=== PATIENT | male | born 2000 | race Caucasian/White ===

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

== ENCOUNTER 2021-08-29 15:28 | Emergency (ER) | payer MEDICAID, OTHER ==
[2021-08-29] MEDS ORDERED: LIDOCAINE 1%-EPI 1:100000 20 ML MDV SUBQ STA (15:43)
[2021-08-29] MEDS ORDERED: TETANUS/DIPHTHERIA/PERTUSSIS 0.5 ML SYRINGE IM ONE (15:43)
--- NOTE | 2021-08-29 15:44 | ED Physician Documentation ---
PD HPI UPPER EXT INJURY - Stated complaint Stated Complaint: CUT IN L HAND - History obtained from History obtained from: Patient - Additonal information Additional information: This is a right-handed gentleman with unknown tetanus status who accidentally cut his left palm with a utility knife while at work just prior to arrival. No other injuries. Review of Systems Skin: reports: Reviewed and negative Musculoskeletal: reports: Extremity pain, Reviewed and negative. denies: Joint pain, Extremity swelling Neurologic: reports: Reviewed and negative PD PAST MEDICAL HISTORY - Allergies Allergies/Adverse Reactions: Allergies Allergy/AdvReac Type Severity Reaction Status Date / Time No Known Drug Allergies Allergy Verified 08/29/21 15:44 PD ED PE NORMAL - Vitals Vital signs reviewed: Yes - General General: Alert and oriented X 3, No acute distress - Extremities Extremities: Other (4 cm laceration on the left palm basically over the medial carpals without distal neurovascular compromise.) - Neuro Neuro: Alert and oriented X 3, Normal speech Results - Vitals Vitals: Vital Signs - 24 hr 08/29/21 15:43 Temperature 36.8 C Heart Rate 74 Respiratory 16 Rate Blood Pressure 170/74 H O2 Saturation 100 Oxygen O2 Source Room air Procedures - Laceration (location) L hand Length in cm: 4 Wound type: Into subcut fat Neurovascular status: Sensory intact, Motor intact, Vascular intact Tendon involvement: Tendon intact Anesthesia: Lidocaine 1% with epi Wound preparation: Irrigated copiously NS, Other (The wound was explored to the base, just involves subcutaneous fat, had intact flexor tendons strength of all the flexor tendons.) Skin layer closure: Nylon, Interrupted, Size #-0 - enter number (4-0), Sutures - enter # (10) Other: Patient tolerated well, No complications, Neurovascular intact, Dressing applied, Tetanus UTD, Other (Velcro wrist splint) Departure - Departure Disposition: 01 Home, Self Care Clinical Impression: Laceration Condition: Good Record reviewed to determine appropriate education?: Yes Instructions: ED Laceration Hand Comments: Come back for any signs of infection which would include: Redness, swelling, drainage, increased pain, or fevers. Keep the splint on for the most part, you do not have to wear it at rest though. You can wash it soap and water. Keep it covered and moist with bacitracin ointment which is available over the counter; avoid neosporin. Follow-up with your physician in 14 days for suture removal. Forms: Activity restrictions
[2021-08-29 15:45] VITALS: BP 170/74
== END 2021-08-29 16:34 | disposition home or self-care (01) ==
LOC: ED 15:28
DX: S61.412A Laceration without foreign body of left hand, initial encounter (principal); W26.0XXA Contact with knife, initial encounter; Y99.0 Civilian activity done for income or pay; Z23 Encounter for immunization
CPT/HCPCS: 1040M; 12002; 90471; 90715; 99283

== ENCOUNTER 2022-07-16 13:58 | Emergency (ER) | payer MEDICAID, OTHER ==
[2022-07-16 14:08] VITALS: BP 116/93
--- OUTSIDE RECORDS SUMMARY | 2022-07-16 15:25 | EXTERNAL MEDICAL SUMMARY RPT | Continuity of Care Document ---
:2000 Author Organization [facility] Address [address] [place] [address] Phone Care Team Providers Name Role Phone Unavailable Unavailable Unavailable Ken Stephens Pa-C Unavailable Unavailable Allergies No information. Encounters No information. Functional Status No information. Immunizations No information. Medications date description facility [id number] No Known Medications [facility] Problems No information. Procedures date description facility [id number] Visit Code Hold Walk-In Clinic [facility] Results/Labs No information. Social History date description facility [id number] Current every day smoker Walk-In [facility] C adams Vital Signs date measurement value units [id number]+0000 BMI BMI 21.15 kg/m2 [id number]+0000 BP_diastolic BP_diastolic 74 mmHg [id number]+0000 BP_systolic BP_systolic 118 mmHg [id number]+0000 heart_rate heart_rate 71 /min [id number]+0000 height_metric height_metric 179.07 cm [id number]+0000 height_standard height_standard 70.5 in [id number]+0000 respiration_rate respiration_rate 16 /min [id number]+0000 weight_metric weight_metric 67.59 kg [id number]+0000 weight_standard weight_standard 149 lb
--- NOTE | 2022-07-16 15:48 | CT Report ---
PROCEDURE: CERVICAL SPINE WO INDICATIONS: head injury, neck pain TECHNIQUE: Noncontrast 3 mm thick sections acquired from the skull base to the T4 level. Sagittal and coronal r eformats were then constructed. For radiation dose reduction, the following was used: automated exp osure control, adjustment of mA and/or kV according to patient size. COMPARISON: None. FINDINGS: Image quality: Excellent. Bones: No fractures or dislocations. Visualized superior ribs are intact. Soft tissues: Prevertebral soft tissues are normal in thickness. No paravertebral hematomas. No ap ical pneumothoraces. IMPRESSION: No or CT evidence of acute traumatic cervical spine injury. Reviewed by: Sukhi Villegas MD on 07/16/2022 3:47 PM PDT Approved by: Sukhi Villegas MD on 07/16/2022 3:47 PM PDT Station ID: [id number]
[2022-07-16] MEDS ORDERED: LIDOCAINE PATCH 5% TOP STA (15:59)
--- NOTE | 2022-07-16 16:04 | ED Physician Documentation ---
PD HPI NECK PAIN - Stated complaint Stated Complaint: NECK SCAN - Chief complaint Chief Complaint: Trauma Hd/Nk - History obtained from History obtained from: Patient - Additional information Additional information: Patient is a 22-year-old male presenting for evaluation of neck pain that occurred just prior to 11:00 this morning. He was measuring something and a 2 pound tape measure fell onto his forehead. He reports his neck went back and he started having pain in the neck. He went to the walk-in clinic who applied an [place] collar and directed him to the emergency department for imaging. He denies LOC. He denies paresthesias or weakness in upper or lower extremities. He denies pain elsewhere. He does not take a blood thinner. Review of Systems Constitutional: denies: Fever Nose: denies: Congestion Cardiac: denies: Chest pain / pressure Respiratory: denies: Dyspnea GI: denies: Abdominal Pain : denies: Dysuria Musculoskeletal: reports: Neck pain Neurologic: denies: Headache, LOC PD PAST MEDICAL HISTORY - Past Medical History Past Medical History: No - Allergies Allergies/Adverse Reactions: Allergies Allergy/AdvReac Type Severity Reaction Status Date / Time No Known Drug Allergies Allergy Verified 07/16/22 14:08 - Social History Does the pt smoke?: No Smoking Status: Never smoker PD ED PE NORMAL - General General: Alert and oriented X 3, No acute distress, Well developed/nourished - HEENT HEENT: Atraumatic, PERRL, EOMI, Moist mucous membranes, Pharynx benign - Neck Neck: Supple, no meningeal sign. No: C-Spine cleared by NEXUS criteria (Mild lower C-spine tenderness on palpation, no step-offs) - Cardiac Cardiac: RRR, Strong equal pulses - Respiratory Respiratory: No respiratory distress, Clear bilaterally - Abdomen Abdomen: Soft, Non tender, Non distended - Derm Derm: Warm and dry - Extremities Extremities: No deformity, No edema - Neuro Neuro: Alert and oriented X 3, No motor deficit, No sensory deficit, Normal speech Eye Opening: Spontaneous Motor: Obeys Commands Verbal: Oriented GCS Score: 15 Results - Vitals Vitals: Vital Signs - 24 hr 07/16/22 14:03 Temperature 36.6 C Heart Rate 65 Respiratory 18 Rate Blood Pressure 116/93 H O2 Saturation 100 Oxygen O2 Source Room air PD MEDICAL DECISION MAKING - ED course Complexity details: reviewed results, re-evaluated patient, d/w patient ED course: Pt with neck pain after tape measure fell on his head. No LOC or concerning symptoms in regards to head injury. Placed into [place] collar at walk in clinic and directed to ED. Has mild midline tenderness. CT C spine negative for injury. Collar removed and also feel ligamentous injury is not likely. Pt counseled on continuing with supportive care and concerning symptoms to return for. 1600 - CT with no evidence of acute traumatic cervical spine injury. C-collar was removed. Patient does not have significant tenderness On exam and is able to range of motion in all directions. Departure - Departure Disposition: 01 Home, Self Care Clinical Impression: Neck pain Head injury Qualifiers: Encounter type: initial encounter Qualified Code(s): S09.90XA - Unspecified injury of head, initial encounter Condition: Stable Instructions: ED Head Injury Closed, ED Sprain Strain Neck Comments: Your CT scan does not show signs of a broken neck.You can use medication such as lidocaine patches or Tylenol to help with your pain as you are not able to take NSAIDs.I would also try ice or heat. If you have any new or worsening symptoms please consider return to the ER. Otherwise I expect this to improve over the next Several days. Discharge Date/Time: 07/16/22 16:28
== END 2022-07-16 16:28 | disposition home or self-care (01) ==
LOC: ED 13:58
DX: S09.90XA Unspecified injury of head, initial encounter (principal); M54.2 Cervicalgia; W20.8XXA Other cause of strike by thrown, projected or falling object, initial encounter
CPT/HCPCS: 72125; 99282; 99284; A9270; 1040M

== ENCOUNTER 2023-11-26 07:00 | Outpatient (CLI) | payer MEDICAID, OTHER | END 2023-11-26 23:59 | disposition home or self-care (01) | LOC: LAB.S 07:00 | PROVIDERS: ATTEND Registered Nurse | DX: L02.91 Cutaneous abscess, unspecified (principal) | CPT/HCPCS: 87070; 87205 ==

== ENCOUNTER 2023-12-09 17:16 | Emergency (ER) | payer OTHER ==
[2023-12-09 17:37] VITALS: BP 123/80; O2SAT 99
--- NOTE | 2023-12-09 17:56 | ED Physician Documentation ---
History of Present Illness - Stated complaint Stated Complaint: NECK PX/LT ARM PX - Chief complaint Chief Complaint: Trauma Hd/Nk - History obtained from History obtained from: Patient - Additonal information Additional information: Otherwise healthy 23-year-old gentleman had a 60 pound piece of equipment fall on his head just prior to arrival while at work. He jerked his head forward and now he has moderate low neck pain. No other injuries. PD PAST MEDICAL HISTORY - Past Medical History Past Medical History: Yes : Other Other Past Medical History: one kidney - Past Surgical History Past Surgical History: No - Present Medications Home Medications: Ambulatory Orders Medication Instructions Recorded Confirmed No Known Home Medications 12/09/23 12/09/23 - Allergies Allergies/Adverse Reactions: Allergies Allergy/AdvReac Type Severity Reaction Status Date / Time No Known Drug Allergies Allergy Verified 12/09/23 17:49 - Social History Does the pt smoke?: No Smoking Status: Never smoker Does the pt drink ETOH?: Yes Does the pt have substance abuse?: Yes Substance Use and Type: Marijuana PD ED PE NORMAL - Vitals Vital signs reviewed: Yes - General General: Alert and oriented X 3, No acute distress - Neck Neck: Other (Mild low neck tenderness, full range of motion) - Extremities Extremities: Other (Normal and 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, thumb extension, interosseous strength, flexion extension at the wrist, and sensation throughout the hands and arms.) - Neuro Neuro: Alert and oriented X 3, Normal speech Eye Opening: Spontaneous Motor: Obeys Commands Verbal: Oriented GCS Score: 15 Results - Vitals Vitals: Vital Signs - 24 hr 12/09/23 17:28 Temperature 37.2 C Heart Rate 77 Respiratory 16 Rate Blood Pressure 123/80 O2 Saturation 99 Oxygen O2 Source Room air - Rads (name of study) CT C spine Relevant Findings:: Final report received, EMP independent interpretation of test Departure - Departure Disposition: 01 Home, Self Care Clinical Impression: Neck strain Condition: Good Record reviewed to determine appropriate education?: Yes Instructions: ED Sprain Strain Neck Comments: The CAT scan of your neck was normal. Follow-up with your doctor in a week if not improving, return for new or worsening symptoms. Forms: PCP List
--- NOTE | 2023-12-09 18:49 | CT Report ---
PROCEDURE: Cervical Spine WO INDICATIONS: neck inj TECHNIQUE: Noncontrast 3 mm thick sections acquired from the skull base to the T4 level. Sagittal and coronal r eformats were then constructed. For radiation dose reduction, the following was used: automated exp osure control, adjustment of mA and/or kV according to patient size. COMPARISON: None. FINDINGS: Image quality: Excellent. Bones: No fractures or dislocations. Visualized superior ribs are intact. Soft tissues: Prevertebral soft tissues are normal in thickness. No paravertebral hematomas. No ap ical pneumothoraces. IMPRESSION: No acute, displaced fracture or traumatic subluxation. Reviewed by: Julien Howell MD on 12/09/2023 6:48 PM PDT Approved by: Julien Howell MD on 12/09/2023 6:48 PM PDT Station ID: [id number]
== END 2023-12-09 18:58 | disposition home or self-care (01) ==
LOC: ED 17:16
DX: S19.9XXA Unspecified injury of neck, initial encounter (principal); W20.8XXA Other cause of strike by thrown, projected or falling object, initial encounter; Y99.0 Civilian activity done for income or pay
CPT/HCPCS: 1040M; 72125; 99283; 99284